=== PATIENT | male | born 1955 | race Caucasian/White ===

== ENCOUNTER 2023-03-04 07:15 | Emergency (ER) | payer MEDICARE, BC ==
[~2023-03-04] VITALS: Ht 188 cm; Wt 79.4 kg
[2023-03-04 07:16] VITALS: BP 120/71; TEMP 98.3
[2023-03-04] MEDS ORDERED: CLIN300C12 PO (07:41)
[2023-03-04] MEDS ORDERED: CLINDAMYCIN HCL 150 MG CAPSULE PO ONE (08:00)
[2023-03-04] MEDS ORDERED: CLINDAMYCIN HCL 150 MG CAPSULE ONE (08:06)
[2023-03-04 08:11] VITALS: O2SAT 98
== END 2023-03-04 08:18 | disposition home or self-care (01) ==
LOC: ER 07:15
DX: L08.9 Local infection of the skin and subcutaneous tissue, unspecified (principal)